=== PATIENT | male | born 2000 | race Two or more races ===

== ENCOUNTER 2024-08-25 15:37 | Emergency (ER) | payer OTHER ==
[~2024-08-25] VITALS: Ht 172.7 cm; Wt 68.0 kg
[2024-08-25 16:05] VITALS: BP 134/84; O2SAT 100
== END 2024-08-25 19:45 | disposition home or self-care (01) ==
LOC: ER 15:39
DX: L60.0 Ingrowing nail (principal)

== ENCOUNTER 2024-11-03 14:49 | Outpatient (CLI) | payer OTHER | END 2024-11-03 14:59 | disposition home or self-care (01) | LOC: SONOGRAMA 14:49 | PROVIDERS: ATTEND General Practice | DX: E04.1 Nontoxic single thyroid nodule (principal); E03.9 Hypothyroidism, unspecified ==

== ENCOUNTER 2024-12-16 07:48 | Outpatient (CLI) | payer OTHER | END 2024-12-16 07:54 | disposition home or self-care (01) | LOC: SONOGRAMA 07:48 | PROVIDERS: ATTEND Pathology Anatomic Pathology & Clinical Pathology | DX: D34 Benign neoplasm of thyroid gland (principal); E04.1 Nontoxic single thyroid nodule; E07.89 Other specified disorders of thyroid ==

== ENCOUNTER 2025-07-22 14:09 | Outpatient (CLI) | payer OTHER | END 2025-07-22 14:49 | disposition home or self-care (01) | LOC: SONOGRAMA 14:09 | PROVIDERS: ATTEND General Practice | DX: E04.1 Nontoxic single thyroid nodule (principal) ==